=== PATIENT | female | born 1980 | race Hispanic/Latino ===

== ENCOUNTER → 2024-10-17 | Day surgery (SDC) | payer OTHER ==
[~2024-10-17] MED LIST: LIDOCAINE HCL 2% LOCAL INJ 5 ML SDV VIAL INJ ONE; MIDAZOLAM HCL 2 MG/2 ML VIAL ONE; PROPOFOL IV EMULSION 50 ML IV ONE
[2024-10-17] MEDS: LACTATED RINGER'S 1,000 ML ONE (13:50)
[2024-10-17 15:05] VITALS: BP 109/68; PULSE 52; RESP 18; TEMP 97.1; O2SAT 97
== END | disposition home or self-care (01) ==
LOC: OR 13:13
PROVIDERS: ATTEND Internal Medicine Gastroenterology
DX: Z12.11 Encounter for screening for malignant neoplasm of colon (principal); D12.3 Benign neoplasm of transverse colon; D12.4 Benign neoplasm of descending colon; K29.70 Gastritis, unspecified, without bleeding; K21.00 Gastro-esophageal reflux disease with esophagitis, without bleeding; K44.9 Diaphragmatic hernia without obstruction or gangrene; K59.00 Constipation, unspecified; K63.89 Other specified diseases of intestine; K64.8 Other hemorrhoids; E61.1 Iron deficiency; Z72.0 Tobacco use; Z79.1 Long term (current) use of non-steroidal anti-inflammatories (NSAID); Z83.719 Family history of colon polyps, unspecified
CPT/HCPCS: 43239; 45380; 45385; 81025; J2003; J2250; J2704; J7121; 45378